=== PATIENT | male | born 1995 | race Caucasian/White ===

== ENCOUNTER 2021-10-20 16:37 | Observation (INO) | payer OTHER ==
[~2021-10-20] VITALS: Ht 165.1 cm; Wt 65.8 kg
[2021-10-20 17:29] LABS: HEMOGLOBIN 13.6 gm/dl (14.0-17.5); RED BLOOD COUNT 4.89 M/UL (4.20-5.50); WHITE BLOOD COUNT 6.3 K/UL (4.5-11.0)
[2021-10-20 17:45] LABS: BUN/CREATININE RATIO 20 (0-10)
[2021-10-21] MEDS ORDERED: LIPITOR20 MG PO (10:25)
== END 2021-10-21 13:15 | disposition home or self-care (01) ==
LOC: ER1 16:37 → CDU 23:27 → CCU 23:27
PROVIDERS: Emergency Medicine; ADMIT Internal Medicine
DX: R07.89 Other chest pain (principal); Z20.822 Contact with and (suspected) exposure to COVID-19; E78.5 Hyperlipidemia, unspecified; F12.10 Cannabis abuse, uncomplicated; R00.0 Tachycardia, unspecified; F41.9 Anxiety disorder, unspecified; F43.10 Post-traumatic stress disorder, unspecified; Z87.820 Personal history of traumatic brain injury
CPT/HCPCS: ECHO; 36415; 71045; 80053; 80061; 80307; 82550; 82553; 83874; 84439; 84443; 84484; 85025; 85379; 93005; 93306; 99285; G0378; U0002